=== PATIENT | female | born 1990 | race Two or more races ===

== ENCOUNTER 2019-02-04 13:40 | Emergency (ER) | payer OTHER, MEDICAID ==
[~2019-02-04] VITALS: Ht 170.2 cm; Wt 131.5 kg
[2019-02-04 17:29] VITALS: BP 131/81
[2019-02-04] MEDS ORDERED: IBUPROFEN 800 MG TAB PO ONE (17:30)
== END 2019-02-04 17:51 | disposition home or self-care (01) ==
LOC: ER 13:40
DX: S83.92XA Sprain of unspecified site of left knee, initial encounter (principal); W01.0XXA Fall on same level from slipping, tripping and stumbling without subsequent striking against object, initial encounter; Y93.89 Activity, other specified; Y99.8 Other external cause status; Y92.89 Other specified places as the place of occurrence of the external cause
CPT/HCPCS: 73562